=== PATIENT | female | born 1955 | race Caucasian/White ===

== ENCOUNTER 2019-06-04 13:11 | Inpatient (IN) | payer OTHER ==
[~2019-06-04] VITALS: Ht 167.6 cm; Wt 84.9 kg
[2019-06-04 13:30] VITALS: Ht 167.6 cm; Wt 84.9 kg
[2019-06-04 14:51] LABS: BASOPHIL % 0.2 % (0-2); PLATELET COUNT 178 x10^3mcL (130-400); RED CELL DISTRIBUTION WIDTH 14.2 % (11.5-14.5)
[2019-06-04 15:10] LABS: ALBUMIN 3.8 g/dL (3.4-5.0); BILIRUBIN TOTAL 0.9 mg/dL (0.20-1.00); CALCIUM 10.2 mg/dL (8.5-10.1); POTASSIUM SERUM 4.6 mmol/L (3.5-5.1)
[2019-06-04 15:20] LABS: TOTAL PROTEIN, SERUM 8.3 g/dL (6.4-8.2)
[2019-06-04] MEDS ORDERED: LITHOBID300 MG PO ×2 (19:32→19:33)
[2019-06-04 20:32] VITALS: BP 118/69
[2019-06-05 05:39] VITALS: BP 112/60
[2019-06-05 06:48] LABS: BASOPHIL % 0.2 % (0-2); PLATELET COUNT 155 x10^3mcL (130-400)
[2019-06-05 06:58] LABS: ALBUMIN 3.4 g/dL (3.4-5.0); ALKALINE PHOSPHATASE 74 U/L (46-116); ALT/SGPT 40 U/L (14-59); AST/SGOT 22 U/L (15-37); BILIRUBIN TOTAL 1.07 mg/dL (0.20-1.00); CALCIUM 10.2 mg/dL (8.5-10.1); CARBON DIOXIDE 23.8 mmol/L (21-32); CHLORIDE SERUM 105 mmol/L (98-107); CREATININE SERUM 0.9 mg/dL (0.6-1.0); GFR1 > 60 mL/min; GLUCOSE SERUM 128 mg/dL (74-106); MAGNESIUM 1.9 mg/dL (1.8-2.4); POTASSIUM SERUM 4.1 mmol/L (3.5-5.1); SODIUM SERUM 137 mmol/L (136-145); TOTAL PROTEIN, SERUM 7.7 g/dL (6.4-8.2)
[2019-06-05 07:17] LABS: RED CELL DISTRIBUTION WIDTH 14.6 % (11.5-14.5)
[2019-06-05 09:00] VITALS: BP 135/75
[2019-06-05 14:17] VITALS: BP 120/56
[2019-06-05 15:23] VITALS: BP 120/56
== END 2019-06-05 16:48 | disposition home or self-care (01) | DRG 694 ==
LOC: ED 13:11 → MU 18:54
PROVIDERS: Emergency Medicine; ADMIT Internal Medicine Pulmonary Disease
DX: D49.89 Neoplasm of unspecified behavior of other specified sites (principal); K76.0 Fatty (change of) liver, not elsewhere classified; M41.9 Scoliosis, unspecified; K44.9 Diaphragmatic hernia without obstruction or gangrene; K59.00 Constipation, unspecified; F31.9 Bipolar disorder, unspecified; R11.2 Nausea with vomiting, unspecified; Z68.29 Body mass index [BMI] 29.0-29.9, adult; Z85.40 Personal history of malignant neoplasm of unspecified female genital organ; Z90.710 Acquired absence of both cervix and uterus
CPT/HCPCS: G0378; J1644; J2270; J3010; J7120; Q9967

== ENCOUNTER 2020-04-19 00:08 | Emergency (ER) | payer OTHER ==
[~2020-04-19] VITALS: Ht 167.6 cm; Wt 77.1 kg
[~2020-04-19 00:08] MED LIST: LITHOBID300 MG PO
[2020-04-19 00:42] VITALS: Ht 167.6 cm; Wt 77.1 kg
[2020-04-19 04:47] LABS: CALCIUM 9.8 mg/dL (8.5-10.1); CARBON DIOXIDE 23.4 mmol/L (21-32); CHLORIDE SERUM 107 mmol/L (98-107); CREATININE SERUM 0.9 mg/dL (0.6-1.0); GFR1 > 60 mL/min; GLUCOSE SERUM 184 mg/dL (74-106); POTASSIUM SERUM 3.6 mmol/L (3.5-5.1); SODIUM SERUM 140 mmol/L (136-145)
[2020-04-19 04:51] LABS: ALKALINE PHOSPHATASE 73 U/L (46-116); ALT/SGPT 18 U/L (14-59); AST/SGOT 17 U/L (15-37); BILIRUBIN TOTAL 0.48 mg/dL (0.20-1.00); LIPASE 138 IU/L (73-393); TOTAL PROTEIN, SERUM 7.1 g/dL (6.4-8.2)
[2020-04-19 04:54] LABS: ALBUMIN 3.1 g/dL (3.4-5.0)
[2020-04-19 04:55] LABS: BASOPHIL % 0.3 % (0.2-1.3); PLATELET COUNT 147 x10^3mcL (179-408)
[2020-04-19] MEDS ORDERED: COLACE100 MG PO (05:41)
[2020-04-19] MEDS ORDERED: NEU300 PO (05:41)
[2020-04-19] MEDS ORDERED: APAP/HYDROCODON1 T13 PO (05:41)
[2020-04-19 07:40] VITALS: BP 130/69
== END 2020-04-19 07:40 | disposition home or self-care (01) ==
LOC: ED 00:08
PROVIDERS: Emergency Medicine
DX: G62.9 Polyneuropathy, unspecified (principal); I10 Essential (primary) hypertension; R11.10 Vomiting, unspecified; Z85.42 Personal history of malignant neoplasm of other parts of uterus; Z85.028 Personal history of other malignant neoplasm of stomach; Z88.8 Allergy status to other drugs, medicaments and biological substances
CPT/HCPCS: J2270; J2405; J7030